=== PATIENT | female | born 1990 | race Caucasian/White ===

== ENCOUNTER 2017-10-18 09:59 | Emergency (ER) | payer OTHER ==
[2017-10-18 10:07] VITALS: BP 126/83
--- NOTE | 2017-10-18 10:15 | UC ---
Bite Injury/Animal HPI - HPI Summary HPI Summary: This patient is a 27 year old female presenting to [facility] [place] with a chief complaint of dog bite [employer]. Patient states that she was jogging and noticed a dog running next to her when it suddenly bit her. The bite is located in her right elbow area. The skin is broken, but she notes that the bite is relatively small. The pain is rated 1/10 in severity. Patient denies fevers, chills, any other medical concerns. Patient states she is not sure when her last tetanus shot was taken. 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 - History of Current Complaint Stated Complaint: DOG BITE Time Seen by Provider: 10/18/17 10:02 Hx Obtained From: Patient Hx Last Menstrual Period: iud Pain Intensity: 1 Pain Scale Used: 0-10 Numeric Onset/Duration: Sudden Onset, Still Present Type of Bite: Pet - Dog Has Animal Been Immunized?: Yes Character: Puncture Aggravating Factor(s): Nothing Alleviating Factor(s): Nothing Associated Signs And Symptoms: Negative: Fever Hx of Bite: Unprovoked Animal Available for Observation: Yes - Allergies/Home Medications Allergies/Adverse Reactions: Allergies Allergy/AdvReac Type Severity Reaction Status Date / Time No Known Allergies Allergy Verified 10/18/17 10:07 PMH/Surg Hx/FS Hx/Imm Hx Previously Healthy: Yes Other Endocrine History: Negative: Diabetes Other Cardiovascular History: Negative: Hypertension Other Respiratory History: negative Other GI/ History: negative Other Neurological History: negative Other Psychological History: negative Other Cancer History: negative - Surgical History Surgical History: Yes Surgery Procedure, Year, and Place: appendectomy 2005 - Family History Known Family History: Negative: Hypertension, Diabetes - Social History Alcohol Use: Occasionally Alcohol Amount: 2 beers, twice per week Substance Use Type: None Smoking Status (MU): Never Smoked Tobacco - Immunization History Most Recent Influenza Vaccination: December 2014 Most Recent Tetanus Shot: doesnt remember Most Recent Pneumonia Vaccination: never had Review of Systems Constitutional: Negative - Fever, Chills Skin: Other - Bite/Puncture wound to right arm Eyes: Negative ENT: Negative Respiratory: Negative Cardiovascular: Negative Gastrointestinal: Negative Genitourinary: Negative Motor: Negative Neurovascular: Negative Musculoskeletal: Negative Neurological: Negative Psychological: Negative Is Patient Immunocompromised?: No All Other Systems Reviewed And Are Negative: Yes Physical Exam - Summary Physical Exam Summary: Appearance: Well-Appearing, No Pain Distress, Well-Nourished Eyes: conjunctiva clear, no discharge ENT: Hearing grossly normal, no muffled/hoarse voice. Neck: Normal, Supple Respiratory/Lung Sounds: Lungs clear, Normal breath sounds Cardiovascular: RRR, No murmur Abdomen: Nontender, Soft, no guarding, not distended Bowel Sounds: Present Musculoskeletal: Normal Neurological: Alert, muscle tone normal Psychiatric:Normal, age appropriate behavior Skin: Small puncture wound, 2mm with on right distal arm, no bleeding , Triage Information Reviewed: Yes Vital Signs: Initial Vital Signs Temp 98 F 10/18/17 10:04 Pulse 83 10/18/17 10:04 Resp 16 10/18/17 10:04 BP 126/83 10/18/17 10:04 Pulse Ox 99 10/18/17 10:04 Bite Injury Course/Dx - Course Course Of Treatment: This patient is a 27 year old female presenting to [facility] [place] with a chief complaint of dog bite [employer]. Patient states that she was jogging and noticed a dog running next to her when it suddenly bit her. In the ED course the patient was given a tetanus shot . Patients wound was dressed and irrigated by RN. Patient will be discharged with prescription for Augmentin and follow up with PCP. The patient is agreeable with this plan. - Differential Dx/Diagnosis Provider Diagnoses: dog bite Discharge - Sign-Out/Discharge Documenting (check all that apply): Patient Departure All imaging exams completed and their final reports reviewed: No Studies - Discharge Plan Condition: Stable Disposition: HOME Prescriptions: Amoxicillin/Clavulanate TAB* [Augmentin TAB 875*] 875 mg PO BID 10 Days #20 tab Patient Education Materials: Animal Bite (ED) Referrals: Nelly Quiroz MD [Primary Care Provider] - 1 Week Additional Instructions: Please start taking the medication as prescribed to the pharmacy . Follow up with your primary care doctor in 1 week. Return to Urgent care / ER if symptoms get worse. - Billing Disposition and Condition Condition: STABLE Disposition: Home - Attestation Statements Document Initiated by Scribe: Yes Documenting Scribe: Cheng Zimmerman Provider For Whom Scribe is Documenting (Include Credential): Radha Navarrete MD Scribe Attestation: Cheng Gomez scribed for Radha Navarrete MD on 10/18/17 at 1353. Scribe Documentation Reviewed: Yes Provider Attestation: The documentation as recorded by the scribeCheng accurately reflects the service I personally performed and the decisions made by me, Radha Nvaarrete MD
[2017-10-18] MEDS ORDERED: Tetan/Diph/Pertus SYR(Tdap)* 0.5 ML SYR(BOOSTRIX) use SYR IM ONE (10:20)
== END 2017-10-18 10:38 | disposition home or self-care (01) ==
LOC: UCEAST 09:59
DX: S51.031A Puncture wound without foreign body of right elbow, initial encounter (principal); W54.0XXA Bitten by dog, initial encounter; Y93.02 Activity, running; Y92.9 Unspecified place or not applicable; Z23 Encounter for immunization
CPT/HCPCS: 90471; 90715; 99212; G0463